=== PATIENT | male | born 1955 | race Caucasian/White ===

== ENCOUNTER → 2024-11-09 11:58 | Outpatient (BNVA) | payer OTHER, SELFPAY | PROVIDERS: PCP Family Medicine; Visit Provider Family Medicine | DX: I10 Essential (primary) hypertension (principal); E78.00 Pure hypercholesterolemia, unspecified; I87.2 Venous insufficiency (chronic) (peripheral); Z79.52 Long term (current) use of systemic steroids; N18.31 Chronic kidney disease, stage 3a; R73.01 Impaired fasting glucose; Z79.899 Other long term (current) drug therapy; J43.9 Emphysema, unspecified; J45.40 Moderate persistent asthma, uncomplicated | CPT/HCPCS: 80053; 80061; 80198; 83036; 84443; 85025 ==